=== PATIENT | male | born 1975 | race Caucasian/White ===

== ENCOUNTER 2018-01-17 00:14 | Emergency (ER) | payer OTHER ==
[~2018-01-17] VITALS: Ht 185.4 cm; Wt 90.7 kg
[~2018-01-17 00:14] MED LIST: ANTIVERT25 MG PO; FLEXERIL PO; HYDROCODONE-AP1 EAC6 PO; IBUPROFEN 800800 M1; IBUPROFEN 800800 M1 PO; LISINOPRIL20 MG; NORCO 5-325 TA1 EACH PO; TORADOL 10 MG T10 MG PO; ZPAK PO
[2018-01-17] MEDS ORDERED: NAPROSYN500 MG PO (01:14)
[2018-01-17 01:29] VITALS: BP 148/90
== END 2018-01-17 01:32 | disposition home or self-care (01) ==
LOC: M.ERS 00:14
DX: S80.11XA Contusion of right lower leg, initial encounter (principal); I10 Essential (primary) hypertension; F17.210 Nicotine dependence, cigarettes, uncomplicated; W23.0XXA Caught, crushed, jammed, or pinched between moving objects, initial encounter; Y93.89 Activity, other specified; Y92.89 Other specified places as the place of occurrence of the external cause; Y99.8 Other external cause status

== ENCOUNTER 2018-01-24 22:16 | Emergency (ER) | payer OTHER ==
[~2018-01-24] VITALS: Ht 182.9 cm; Wt 90.7 kg
[~2018-01-24 22:16] MED LIST changes: +NAPROSYN500 MG PO
[2018-01-24] MEDS ORDERED: TORADOL 10 MG T10 MG PO (23:34)
[2018-01-24] MEDS ORDERED: HYDROCODON-ACE1 EAC7 PO (23:34)
[2018-01-24 23:55] VITALS: BP 144/99
== END 2018-01-24 23:55 | disposition home or self-care (01) ==
LOC: M.ERS 22:16
DX: S80.11XA Contusion of right lower leg, initial encounter (principal); I10 Essential (primary) hypertension; F17.210 Nicotine dependence, cigarettes, uncomplicated; W23.0XXA Caught, crushed, jammed, or pinched between moving objects, initial encounter; Y93.89 Activity, other specified; Y92.89 Other specified places as the place of occurrence of the external cause; Y99.8 Other external cause status